=== PATIENT | female | born 1940 | race Caucasian/White ===

== ENCOUNTER 2019-05-27 16:05 | Emergency (ER) | payer MEDICARE, OTHER, SELFPAY ==
--- NOTE | ~2019-05-27 | XR_ITS ---
EXAMINATION: XR foot RT min 3V EXAM DATE: 05/27/2019 16:35 INDICATION: No known recent injury provided at this time. Pain of the right foot. Symptoms 2 days. TECHNIQUE: Right foot dorsoplantar, lateral and oblique projections obtained and reviewed. There is no prior study for comparison. FINDINGS: Right metatarsal bones unremarkable. There is mild first metatarsophalangeal joint primary osteoarthritis. There are no bony erosions identified. No periosteal reaction or band of sclerosis to suggest subacute stress fracture. There are no acute fractures or dislocations identified. There is no subcutaneous gas. The soft tissue is unremarkable. There are no radiopaque foreign bodies. IMPRESSION: Mild right first MTP osteoarthritis. Reviewed, dictated and finalized at location B. ING PROFESSOR
[2019-05-27 16:21] VITALS: BP 173/73; PULSE 71; RESP 16; TEMP 37.1; O2SAT 99
--- NOTE | 2019-05-27 17:09 | ED.LOWEXIN ---
HPI - Extremity Injury (Lower) General Chief Complaint: Extremity Injury, Lower Stated Complaint: rt foot pain Time Seen by Provider: 05/27/19 16:45 Source: patient Mode of arrival: ambulatory Limitations: no limitations History of Present Illness HPI Narrative: Carrie Cardenas is a 78 yo female with a pmh of OA, HTN High Cholesterol, who was wearing higher heels and now her R ankle. Ankle is swollwn and painful on lateral side. Related Data Home Medications Medication Instructions Recorded Confirmed albuterol sulfate INHALATION 05/27/19 lisinopril 05/27/19 pantoprazole PO 05/27/19 rosuvastatin mg 05/27/19 Allergies Allergy/AdvReac Type Severity Reaction Status Date / Time hydrocodone Allergy Mild Unknown Verified 05/27/19 16:19 cyclobenzaprine AdvReac Unknown VOMITING Verified 04/26/18 10:14 albuterol AdvReac Chest Pain Verified 05/27/19 16:19 Review of Systems Review of Systems: Narrative: CONSTITUTIONAL: Denies fever, chills, sweats. EYES: Denies visual changes, redness, discharge. ENT: Denies rhinorrhea, congestion, sore throat, otalgia. CARDIOVASCULAR: Denies chest pain, palpitations, edema. RESPIRATORY: Denies dyspnea, wheezing, cough GASTROINTESTINAL: Denies abdominal pain, nausea, vomiting, diarrhea. GENITOURINARY: Denies dysuria, hematuria, abnormal discharge SKIN: Denies rash or itching. NEUROLOGIC: Denies numbness, or focal weakness. PSYCHIATRIC: Denies anxiety or depression. Extrtemity: pain on R dorsal side of foot PMFSH Family History Family History (Updated 05/27/19 @ 17:35 by Sloane Macias CNP) Other Hypertension Social History Social History Smoking status: Former smoker Alcohol intake: current Exam Narrative: Exam Narrative: GENERAL: This is a well-nourished, well-developed patient, in no apparent distress. HEAD: normocephalic, atraumatic. EYES: PERRL. Sclera clear/white. Vision is grossly intact. EARS: External ears normal, . Hearing grossly intact. NOSE: External nose normal with no obvious nasal discharge, nares without redness, no rhinorrhea. THROAT: Mucous membranes moist, NECK: Neck supple, non-tender CARDIOVASCULAR: Regular rate and rhythm without murmurs, gallops, or rubs. RESPIRATORY: Clear to auscultation. Breath sounds equal bilaterally. No wheezes, rales, or rhonchi. GASTROINTESTINAL: Abdomen soft, non-tender, SKIN: warm, intact with no suspicious lesions or rash, good texture and turgor. NEURO: awake, alert, and oriented to person, place and time. There were no obvious focal neurologic abnormalities. Steady gait EXTREMITIES: Normal range of motion. R ankle: edema. Pain to lateral side. 2+ pedal pulses Negative Homans sign bilaterally. BACK: Nontender without deformity or crepitance. Course Course Emergency Course: Xray of R ankle- no acute injury vladimir wrap to ankle RICE instructions given Vital Signs Vital signs: Vital Signs Temperature 98.8 F 05/27/19 16:21 Pulse Rate 71 05/27/19 16:21 Respiratory Rate 16 05/27/19 16:21 Blood Pressure 173/73 H 05/27/19 16:21 Pulse Oximetry 99 05/27/19 16:21 Temperature 98.8 F 05/27/19 16:21 Pulse Rate 71 05/27/19 16:21 Respiratory Rate 16 05/27/19 16:21 Blood Pressure 173/73 H 05/27/19 16:21 Pulse Oximetry 99 05/27/19 16:21 MDM - Extremity Injury (Lower) Differential Diagnosis Differential diagnosis: Likely ankle sprain and strain and ankle fracture Discharge Plan Discharge Clinical Impression: Ankle sprain and strain Foot sprain Qualifiers: Encounter type: initial encounter Laterality: right Qualified Code(s): S93.601A - Unspecified sprain of right foot, initial encounter Patient Disposition: Home, Self-Care Condition: Stable Instructions: Antibiotic Form, Ankle Sprain (DC) Prescriptions: No Action pantoprazole 40 mg tablet,delayed release (DR/EC) PO RF: 0 albuterol sulfat
== END 2019-05-27 17:16 | disposition home or self-care (01) ==
PROVIDERS: Emergency Provider Nurse Practitioner; PCP Internal Medicine
DX: S93.401A Sprain of unspecified ligament of right ankle, initial encounter (principal); S96.911A Strain of unspecified muscle and tendon at ankle and foot level, right foot, initial encounter; X58.XXXA Exposure to other specified factors, initial encounter; Z87.891 Personal history of nicotine dependence; E78.00 Pure hypercholesterolemia, unspecified; I10 Essential (primary) hypertension
CPT/HCPCS: 73630; 99213; G0463

== ENCOUNTER 2019-10-11 13:22 | Outpatient (CLI) | payer MEDICARE, OTHER, SELFPAY ==
--- NOTE | 2019-10-11 | ECHO_ITS ---
Patient Info Name: Carrie Arreguin Age: 78 years : 1940 Gender: Female Ht: 62 in Wt: 180 lbs BSA: 1.92 m2 HR: 63 bpm BP: 152 / 86 mmHg Heart Rhythm: Sinus Rhythm Technical Quality: Fair Exam Date: 10/11/2019 2:16 PM Exam Location: [facility] Patient Status: Outpatient Admit Date: 10/11/2019 Staff Ordering Physician: TinoOdilon MD Sailing Instructor: Maryanne Chapman RDCS Attending Provider: MarcioOdilon MD Exam Type: CA echo doppler color flow Study Info Indications R60.9 - Edema, unspecified Complete two-dimensional, color flow and Doppler transthoracic echocardiogram is performed. Summary 1. Left ventricular systolic function is normal, estimated at 55-60%. 2. The left ventricular diastolic function is grade I diastolic dysfunction. 3. No valvular pathology. Left Ventricle Left ventricular chamber dimension is normal. Left ventricular systolic function is normal, estimated at 55-60%. The left ventricular diastolic function is grade I diastolic dysfunction. Right Ventricle Right ventricular chamber dimension is normal. Left Atria Left atrial chamber dimension is normal. Right Atria Right atrial chamber dimension is normal. Aortic Valve The aortic valve is normal. Pulmonic Valve The pulmonic valve is not well visualized. Mitral Valve The mitral valve has normal leaflets. Tricuspid Valve The tricuspid valve leaflets are normal. Pericardium/Pleural The pericardium appears normal. Aorta The aortic root size at the sinus of Valsalva is normal. Left Ventricular Outflow Tract Name Value Normal LVOT 2D LVOT Diameter 1.9 cm LVOT Doppler LVOT Peak Velocity 114 cm/s LVOT Peak Gradient 5 mmHg LVOT Mean Gradient 3 mmHg LVOT VTI 29 cm LVOT VTI/AV VTI Ratio 1.0 LVOT Stroke Volume 78 ml LVOT CO 4.1 l/min LVOT CI 2.2 l/min/m2 Pulmonic Valve Name Value Normal RVOT Doppler RVOT Peak Gradient 3 mmHg PV Doppler PV Peak Velocity 103 cm/s PV Peak Gradient 4 mmHg Mitral Valve Name Value Normal MV Doppler MV Decel [place] 216 cm/s2 MV PHT 93 ms MV Area (PHT) 2.4 cm2 4.0-5.0 MV Diasto
== END 2019-10-11 13:23 | disposition home or self-care (01) ==
PROVIDERS: PCP Internal Medicine; Visit Provider Internal Medicine
DX: R60.9 Edema, unspecified (principal)
CPT/HCPCS: 93306

== ENCOUNTER 2020-02-08 08:21 | Outpatient (CLI) | payer MEDICARE, OTHER, SELFPAY ==
--- NOTE | 2020-02-12 12:00 | WPDPFTINT ---
PFT Interpretation PFT Interpretation: This PFT met all criteria for ATS standards and reproducibility FEV/FVC post bronchodilator 82% FEV1 104% FVC 86% TLC 85% RV 88% RV/TLC 44% DLCO 61% when adjusted for alveolar volume but not adjusted for hemoglobin Flow volume loops were normal Impression: No significant obstruction or restriction. Mildly decreased diffusion capacity. In the absence of anemia or pulmonary hypertension, intrinsic lung disease may be present. Clinical correlation is advised.
== END 2020-02-08 08:22 | disposition home or self-care (01) ==
PROVIDERS: PCP Internal Medicine; Visit Provider Internal Medicine
DX: R06.00 Dyspnea, unspecified (principal)
CPT/HCPCS: 94060; 94726; 94729

== ENCOUNTER 2020-12-09 15:03 | Emergency (ER) | payer MEDICARE, OTHER, SELFPAY ==
--- NOTE | 2020-12-09 15:05 | ED.GENADULT ---
HPI - General Adult General Chief complaint: Upper Respiratory Infection Stated complaint: EARACHE/CHILLS Time Seen by Provider: 12/09/20 15:05 Source: patient Mode of arrival: ambulatory Limitations: no limitations History of Present Illness HPI narrative: 80-year-old female patient presents to the [facility] with complaints of slight pain to bilateral ears that started yesterday. Patient states she is also had a little bit of some congestion to the nose. Patient states she recently returned from [place] where [place] the [place]. Patient denies any fever, body aches or chills. Patient is fully vaccinated for Covid. Denies chest pain or shortness of breath. Denies any coughing. Patient denies take anything for her symptoms prior to arrival today. Related Data Home Medications Medication Instructions Recorded Confirmed pantoprazole PO 05/27/19 rosuvastatin mg 05/27/19 azilsartan med-chlorthalidone 1 tablet PO DAILY 12/09/20 12/09/20 [Edarbyclor] etodolac mg 12/09/20 levalbuterol tartrate INHALATION 12/09/20 Allergies Allergy/AdvReac Type Severity Reaction Status Date / Time hydrocodone Allergy Mild Unknown Verified 12/09/20 15:13 cyclobenzaprine AdvReac Unknown VOMITING Verified 12/09/20 15:13 albuterol AdvReac Chest Pain Verified 12/09/20 15:13 Review of Systems Review of Systems: CONSTITUTIONAL: Denies fever, chills, or sweats. EYES: Denies visual changes, redness, or discharge. ENT: Denies rhinorrhea, congestion, sore throat, positive bilateral otalgia. CARDIOVASCULAR: Denies chest pain, palpitations, or edema. RESPIRATORY: Denies cough or dyspnea. GASTROINTESTINAL: Denies abdominal pain, nausea, vomiting, or diarrhea. GENITOURINARY: Denies dysuria or hematuria. SKIN: Denies rash or itching. MUSCULOSKELETAL: Denies back pain, joint pain, or myalgia. NEUROLOGIC: Denies headache, numbness, or weakness. PSYCHIATRIC: Denies anxiety or depression. [facility] Past Medical History Medical History (Updated 12/09/20 @ 15:30 by WALTER Martinez) Cataract Degenerative disc disease Diverticulitis Foot fracture, left GERD (gastroesophageal reflux disease) High cholesterol HTN (hypertension) Myocardial infarction Osteoarthritis Parkinsons disease Uterine cancer Surgical History Surgical History (Updated 12/09/20 @ 15:09 by WALTER Martinez) H/O cardiac catheterization H/O: hysterectomy History of appendectomy History of left knee replacement History of tonsillectomy Hx of cholecystectomy Family History Family History Other Hypertension Social History Social History Smoking status: Former smoker Alcohol intake: current Comments At the time of my signature I agree with nursing past medical history, surgical, social, and family history. There is no relevant family history pertinent to the presenting complaint. Exam Narrative: GENERAL: Well-appearing, well-nourished, and in no acute distress. HEAD: Normocephalic, atraumatic. EYES: PERRLA and EOMI. ENT: Nares clear, no rhinorrhea or epistaxis. Mucous membranes moist. Patient does have fluid noted behind bilateral tympanic membranes. No erythema or evidence of infection at this time. NECK: Supple. No lymphadenopathy CHEST: Clear to auscultation. No respiratory distress. HEART: Regular rate and rhythm. No murmur heard. Normal peripheral pulses. ABDOMEN: Soft, nontender, nondistended, normal active bowel sounds. EXTREMITIES: Normal range of motion. No edema. SKIN: Warm, dry, no rash. NEURO: No focal deficits. Alert and oriented x3. Course Vital Signs Vital signs: Vital Signs Temperature 36.6 C 12/09/20 15:20 Pulse Rate 74 12/09/20 15:20 Respiratory Rate 20 12/09/20 15:20 Blood Pressure 122/62 12/09/20 15:20 Pulse Oximetry 100 12/09/20 15:20 Temperature 36.6 C 12/09/20 15:20
[2020-12-09 15:20] VITALS: BP 122/62; PULSE 74; RESP 20; TEMP 36.6; O2SAT 100
== END 2020-12-09 15:33 | disposition home or self-care (01) ==
PROVIDERS: Emergency Provider Nurse Practitioner Family; PCP Internal Medicine
DX: H93.8X3 Other specified disorders of ear, bilateral (principal); K21.9 Gastro-esophageal reflux disease without esophagitis; E78.00 Pure hypercholesterolemia, unspecified; I10 Essential (primary) hypertension; I25.2 Old myocardial infarction; M19.90 Unspecified osteoarthritis, unspecified site; G20 Parkinson's disease; Z85.42 Personal history of malignant neoplasm of other parts of uterus; Z96.652 Presence of left artificial knee joint; Z87.891 Personal history of nicotine dependence
CPT/HCPCS: 99213; G0463

== ENCOUNTER 2024-12-01 17:09 | Emergency (ER) | payer MEDICARE, SELFPAY ==
[2024-12-01 17:11] VITALS: BP 171/74; PULSE 84; RESP 116; TEMP 36.6; O2SAT 100
--- NOTE | 2024-12-01 17:19 | ED_ITS ---
HPI - General Adult General Chief complaint: Unspecified Stated complaint: needs rabies shot, bat in the house Time Seen by Provider: 12/01/24 17:17 Source: patient Mode of arrival: ambulatory Limitations: no limitations History of Present Illness HPI narrative: Patient is an 84-year-old female who presents the ED to receive rabies vaccine. Patient reports she woke up this morning and there was a bat flying around in her house. She does not believe she was bit anywhere. She contacted the health department and was referred to the ED for rabies immunoglobulin and vaccine. Infectious disease department is aware. Related Data Home Medications ?Medication ?Instructions ?Recorded ?Confirmed ?Last Taken ?Type pantoprazole 40 mg tablet,delayed PO 05/27/19 Unknown History release rosuvastatin 10 mg tablet mg 05/27/19 Unknown History azilsartan medoxomil 40 1 tablet PO DAILY 12/09/20 0 12/09/20 Unknown History mg-chlorthalidone 25 mg tablet (Edarbyclor) etodolac 400 mg tablet mg 12/09/20 Unknown History levalbuterol tartrate 45 inhalation 12/09/20 Unknown History mcg/actuation aerosol inhaler Allergies Allergy/AdvReac Type Severity Reaction Status Date / Time hydrocodone Allergy Mild Unknown Verified 12/09/20 15:13 cyclobenzaprine AdvReac Unknown VOMITING Verified 12/09/20 15:13 albuterol AdvReac Chest Pain Verified 12/09/20 15:13 Review of Systems Review of Systems: All systems reviewed & are unremarkable except as noted in HPI. All systems reviewed & are unremarkable except as noted in HPI and below PMFSH Past Medical History Medical History Foot fracture, left Degenerative disc disease Osteoarthritis Uterine cancer GERD (gastroesophageal reflux disease) Diverticulitis Myocardial infarction Parkinsons disease Cataract High cholesterol HTN (hypertension) Surgical History Surgical History History of left knee replacement H/O: hysterectomy Hx of cholecystectomy History of appendectomy H/O cardiac catheterization History of tonsillectomy Family History Family History Other Hypertension Social History Social History Smoking status: Former smoker Alcohol intake: current Exam Narrative: GENERAL: Well appearing, well-nourished, non-toxic, in no acute distress. HEAD: Normocephalic, atraumatic. RESPIRATORY: Airway patent, respirations nonlabored. Clear to auscultation bilaterally, no rales, rhonchi, wheezing. CARDIOVASCULAR: Regular rate and rhythm MUSCULOSKELETAL: Moves all extremities. No gross deformities. SKIN: Warm, dry, normal color. NEURO: A&O X3. Speech clear. PSYCHIATRIC: Appropriate mood and affect. Normal interaction. Course Vital Signs Vital signs: Vital Signs Temperature 97.9 F 12/01/24 17:11 Pulse Rate 84 12/01/24 17:11 Respiratory Rate 116 H 12/01/24 17:11 Blood Pressure 171/74 H 12/01/24 17:11 Pulse Oximetry 100 12/01/24 17:11 Oxygen Delivery Room Air 12/01/24 17:11 Temperature 97.9 F 12/01/24 17:11 Pulse Rate 61 12/01/24 17:34 Respiratory Rate 18 12/01/24 17:34 Blood Pressure 171/74 H 12/01/24 17:11 Pulse Oximetry 100 12/01/24 17:34 Oxygen Delivery Room Air 12/01/24 17:11 Medical Decision Making MDM Narrative Medical decision making narrative: Patient given rabies immunoglobulin, 1st rabies vaccine in the ED. Will be given prescription for subsequent vaccine is to follow-up with infectious disease. Medical Records Medical records reviewed: Yes I reviewed the external patient's medical records. Vital Signs Vital Signs: Vital Signs Temperature 97.9 F 12/01/24 17:11 Pulse Rate 84 12/01/24 17:11 Respiratory Rate 116 H 12/01/24 17:11 Blood Pressure 171/74 H 12/01/24 17:11 Pulse Oximetry 100 12/01/24 17:11 Oxygen Delivery Room Air 12/01/24 17:11 Temperature 97.9 F 12/01/24 17:11 Pulse Rate 61 12/01/24 17:34 Respiratory Rate 18 12/01/24 17:34 Blood Pressure 171/74 H 12/01/24 17:11 Pulse Oximetry 100 12/01/24 17:34 Oxygen Delivery Room Air 12/01/24 17:11 Discharge Plan Discharge Clinical Impression: Rabies, need for prophylactic vaccination against, Exposure to bat without known bite Patient Disposition: Home Condition: Stable Instructions: Antibiotic Form, Rabies (ED) Additional Instructions: Follow up with Infectious Disease Department regarding subsequent vaccinations on Day 3, 7, 14. Patient Language: Albanian Prescriptions: No Action pantoprazole 40 mg tablet,delayed release (DR/EC) PO rosuvastatin 10 mg tablet etodolac 400 mg tablet levalbuterol tartrate 45 mcg/actuation HFA aerosol inhaler INHALATION Edarbyclor 40-25 mg Tablet 1 tablet PO DAILY cetirizine [Zyrtec] 10 mg tablet 10 mg PO DAILY Qty: 30 0RF fluticasone propionate [Flonase Allergy Relief] 50 mcg/actuation spray,suspension 1 spray NASAL BID Qty: 15.8 0RF Rx Instructions: administer into each nostril Follow-up/Referrals: Tino,MD Odilon [Non-Staff] Time of Disposition: 17:20
[2024-12-01 17:34] VITALS: PULSE 61; RESP 18; O2SAT 100
[2024-12-01] MEDS: RABIES VACCINE (RABAVERT) 2.5 UNITS VIAL IM (18:00)
[2024-12-01] MEDS: RABIES IMMUNE GLOBULIN/PF 1,500 UNITS/5 ML VIAL 1480 UNITS IM (18:03)
== END 2024-12-01 18:10 | disposition home or self-care (01) ==
LOC: ANHED 17:37
PROVIDERS: Emergency Provider Physician Assistant; PCP Family Medicine
DX: Z29.14 Encounter for prophylactic rabies immune globulin (principal); Z23 Encounter for immunization; G20.A1 Parkinson's disease without dyskinesia, without mention of fluctuations; I25.2 Old myocardial infarction; I10 Essential (primary) hypertension; E78.00 Pure hypercholesterolemia, unspecified; K21.9 Gastro-esophageal reflux disease without esophagitis; M19.90 Unspecified osteoarthritis, unspecified site; Z85.42 Personal history of malignant neoplasm of other parts of uterus; Z96.652 Presence of left artificial knee joint; Z90.710 Acquired absence of both cervix and uterus; Z90.49 Acquired absence of other specified parts of digestive tract; Z79.899 Other long term (current) drug therapy
CPT/HCPCS: 90375; 90471; 90675; 96372; 99283

== ENCOUNTER 2024-12-15 07:32 | Outpatient (RCR) | payer MEDICARE, SELFPAY ==
[2024-12-08] MEDS: RABIES VACCINE (RABAVERT) 2.5 UNITS VIAL IM (17:25)
[2024-12-15] MEDS: RABIES VACCINE (RABAVERT) 2.5 UNITS VIAL IM (07:53)
== END 2025-03-09 23:59 | disposition home or self-care (01) ==
LOC: ANHVASCINF 07:32
PROVIDERS: PCP Family Medicine; Visit Provider Physician Assistant
DX: Z20.3 Contact with and (suspected) exposure to rabies (principal); Z29.14 Encounter for prophylactic rabies immune globulin
CPT/HCPCS: 90471; 90675